=== PATIENT | female | born 1960 | race Caucasian/White ===

== ENCOUNTER → 2017-02-28 | Outpatient (CLI) | payer OTHER ==
[~2017-02-28] MED LIST: ACIPHEX20 MG PO; LEXAPRO5 MG PO; WELLBUTRIN XL300 MG PO
== END | disposition home or self-care (01) ==
LOC: NUC 07:58
DX: R07.2 Precordial pain (principal)
CPT/HCPCS: 78452; 93017; A9500

== ENCOUNTER → 2017-03-21 | Outpatient (CLI) | payer OTHER | END | disposition home or self-care (01) | LOC: RAD 09:43 | DX: I88.9 Nonspecific lymphadenitis, unspecified (principal) | CPT/HCPCS: 72193 ==

== ENCOUNTER → 2017-04-05 | Outpatient (CLI) | payer OTHER ==
[~2017-04-05] MED LIST changes: +NORCO 10/3251 TABLET PO; +PRILOSEC20 MG PO
== END | disposition home or self-care (01) ==
LOC: RAD 08:44
PROC: 07BH3ZX Excision of Right Inguinal Lymphatic, Percutaneous Approach, Diagnostic (ICD-10-PCS; principal; 2017-04-05)
DX: R59.0 Localized enlarged lymph nodes (principal); R07.2 Precordial pain
CPT/HCPCS: 76942; 88305